=== PATIENT | female | born 1990 | race Two or more races ===

== ENCOUNTER 2020-07-15 23:07 | Emergency (ER) | payer MEDICAID ==
[~2020-07-15] VITALS: Ht 170.2 cm; Wt 70.0 kg
[2020-07-15 23:09] VITALS: BP 162/109
--- NOTE | 2020-07-16 01:54 | NUR ---
PATIENT CALLED 3 TIMES IN THE LOBBY. NO ANSWER.
== END 2020-07-16 01:56 | disposition left against medical advice (07) ==
LOC: ED 23:37
DX: F11.23 Opioid dependence with withdrawal (principal); Z53.21 Procedure and treatment not carried out due to patient leaving prior to being seen by health care provider